=== PATIENT | female | born 1995 | race Caucasian/White ===

== ENCOUNTER 2025-03-18 11:20 | Outpatient (AMB) | payer OTHER, SELFPAY ==
--- NOTE | 2025-03-18 11:25 | A.OFFPC_ITS ---
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 Required: No Accompanied by: Self / Same As Patient Allergies No Known Allergies Allergy (Verified 03/18/25 11:25) Tobacco use date assessed: 03/18/25 Dental Screening Dental Screen Date: 03/18/25 Did you have a dental visit in the last 12 months?: Yes Did you have a dental problem in the last 6 months where you did not have access to dental care?: No Was dental information given to patient?: Patient has dentist HPI HPI Comments History of Present Illness Details 29 year old female with history of cocai ne use, alcohol use discorder, anxiety/depression presents to the office to establish care, management if chronic conditions and for annual physical exam. Prior patient at [facility] primary care, last seen over 1 year ago. 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 Completed high school. Not currenlty interested in more education. No alcohol use now, history heavy alcohol consumption. No history of cigarettes. Hx cocaine use, rehab in 09/2021. Sober since. Smokes MJ. Prior vaping. Follows a healthy overall. Very active at work, but no formal exercise. AUD/Cocaine abuse- sober since 09/2021 following rehab. . Anxiety/depression- sertraline 125mg has been out several months. Lorazepam 0.5mg prn maybe once weekly. History of ectopic and spontaneous - s/p right salpingectomy. No longer sexually active. Requestine OCP Concerns: Epigastric pain ongoing several weeks. Pain with pushing, no bulge. Uncomfortable constantly, much worse with eating. Pain with eating. Some heartburn. No nausea/vomiting/diarrhea. No melena. BM every other day some straining. Any food or drink is triggering. Health Maintenance: Overdue for truckload checker/pap FH breast cancer Paternal Grandmother age 30 Col[place]copies age 45 No eye doctor Dentist twice yearly Wears sun protection Reviewed past medical, surgical, social, family history ROS: General: No fevers, malaise, unintentional weight loss HEENT: No blurred vision, diplopia. No sore throat, nasal congestion, rhinorrhea, sinus pain, ear pain. No hearing loss Neck - no adenopathy Cardiovascular: No chest pain, palpitations, or leg edema Respiratory: No shortness of breath, wheezing, cough Breast: No pain, palpable lumps, nipple inversion GI: No dysphagia, odynophagia, globus sensation. see hpi : No dysuria, hematuria, increased urinary frequency, decreased urinary output. SKEIN WINDING OPERATOR: No abn vaginal bleeding or discharge MSK: No myalgia, back pain, arthralgias Neuro: No headaches, weakness, paresthesias Psych: no depression/anxiery. No AH/VH. No SI/HI Skin: No rashes or lesions EXAM: Constitutional - Awake and Alert, No apparent distress Eyes - PERRLA, EOMI. Anicteric Ears - external ears normal, canals clear, TMs intact and pearly westfall with good cone of light Nose- septum midline, nares clear, no sinus tenderness Mouth/throat- mucosa moist, tongue and uvula midline, no erythema/edema or tonsillar adenopathy. Neck-trachea midline, thyroid symmetric without palpable nodules, no adenopathy Cardiovascular - S1S2, RRR, No edema Respiratory - Normal lung expansion, Normal respiratory effort, No respiratory distress, CTA bilaterally Gastrointestinal - NT / ND; +BS; No rebound or guarding - No CVA tenderness Extremities - no calf tenderness bilaterally, no swelling Musculoskeletal - Normal inspection, normal ROM Skin - Warm/Dry, no concerning lesions Neurological - Alert & oriented x3, CN II-XII in tact, 5/5 strength BUE and BLE, 2+ patellar reflexes, sensation intact Psychological - Appropriate affect PFSH Medical History Gastritis H/O spontaneous , not currently Generalized anxiety disorder MDD (major depressive disorder) Surgical History H/O unilateral salpingectomy S/P ectopic Family History Paternal Grandmother Breast cancer, Onset Age: 30 Maternal Uncle Diabetes Social History Housing: House Patient Tobacco Use Status: Never used Tobacco e-Cigarette/Vaping Use: Currently Using Current occupational status: employed 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 1. Little interest or pleasure in doing things: more than half the days 2. Feeling down, depressed, or hopeless: nearly every day 3. Trouble falling or staying asleep, or sleeping too much: more than half the days 4. Feeling tired or having little energy: more than half the days 5. Poor appetite or overeating: more than half the days 6. Feeling bad about yourself - or that you are a failure or have let yourself or your family down: several days 7. Trouble concentrating on things, such as reading the newspaper or watching television: nearly every day 8. Moving or speaking so slowly that other people could have noticed. Or the opposite - being so fidgety or restless that you have been moving around a lot more than usual: more than half the days 9. Thoughts that you would be better off or of hurting yourself in some way: not at all Total score: 17 Depression Screening Interpretation: Positive Depression Screening Follow-up: New Medication prescribed and Follow-up Visit Requested Depression Screening Done: Yes 68222 - PHQ-9 Billing: Yes Source: Developed by Drs. Eugene Gaona, Camelia Bradshaw, Chuy Oviedo and colleagues, with an educational bettye from [employer] Thrive Questionnaire I am a: Patient What is your living situation today?: I have a steady place to live Within the past 12 months, did the food you bought not last and you didn't have the money to get more?: Never true Within the past 12 months, did you worry whether your food would run out before you got money to buy more?: Never true Do you have trouble paying for medicines?: No Do you have trouble getting transportation to medical appointments?: No Do you have trouble paying your heating and electricity bill?: No Do you have trouble taking care of your child, family member or friend?: No Do you have trouble with day-to-day activities such as bathing, preparing meals, shopping, managing finances, etc.?: No Are you currently unemployed and looking for a job?: No Are you interested in more education?: No Please select the resources that you would like help with: None Currently or been in a relationship where the following occur: No concerns reported THRIVE Score: 0 AUDIT C Alcohol Use Questionnaire (AUDIT-C) 1. How often do you have a drink containing alcohol?: Never 3. How often do you have six or more drinks on one occasion?: Never Total Score: 0 ARLYN-7 AMB Questionnaire ARLYN-7 Feeling nervous, anxious, or on edge: 3 = Nearly every day Not being able to stop or control worryin = More than half the days Worrying too much about different things: 2 = More than half the days Trouble relaxin = More than half the days Being so restless that it is hard to sit still: 1 = Several days Becoming easily annoyed or irritable: 3 = Nearly every day Feeling afraid as if something awful might happen: 3 = Nearly every day Total ARLYN-7 score (0-4 normal; 5-9 mild; 10-14 moderate; 15-21 severe): 16 Source: Developed by Drs. Eugene Gaona, Camelia Bradshaw, Chuy Oviedo and colleagues, with an educational bettye from [employer] ARLYN-7 Assessment Billing ARLYN-7 Assessment Tool: ARLYN-7 Assessment 73255 Physical exam (Primary Care) Vital Signs: Last Vital Signs Temp 96.9 F 03/18/25 11:26 Pulse 68 03/18/25 11:26 Resp 16 03/18/25 11:26 BP 112/70 03/18/25 11:26 Pulse Ox 99 03/18/25 11:26 Oxygen Delivery Method Room Air 03/18/25 11:26 BMI result Body Mass Index 19.1 Tobacco/Smoking Status: Tobacco use Status Tobacco use date assessed 03/18/25 03/18/25 11:31 Patient Tobacco Use Status Never used Tobacco 03/18/25 11:31 e-Cigarette/Vaping Use Currently Using 03/18/25 11:31 Depression Screening Interpretation: Positive Depression Screening Follow-up: New Medication prescribed and Follow-up Visit Requested Currently or been in a relationship where the following occur: No concerns reported Coding Level of Care Code Est Pt Prev Care 18-39y(61729) Diagnoses Routine medical exam Z00.00 Encounter for initial prescription of contraceptive pills Z30.011 FH: breast cancer in relative when <45 years old Z80.3 Gastritis K29.70 MDD (major depressive disorder) F32.9 Additional Codes ARLYN-7 Assessment Billing - ARLYN-7 Assessment Tool: ARLYN-7 Assessment 12651 ([id number]) PHQ-9 - 22027 - PHQ-9 Billing: Yes ([id number]) Assessment & Plan Assessment & Plan (1) Routine medical exam: Code(s): Z00.00 - Encounter for general adult medical examination without abnormal findings Category: Medical Plan: 29 year old female presenting for annual physical exam and to establish care. Plan as below (2) Encounter for initial prescription of contraceptive pills: Code(s): Z30.011 - Encounter for initial prescription of contraceptive pills Plan: Norethindrone. Referred to truckload checker. Counseled on safe sex practices. Declines STI testing (3) FH: breast cancer in relative when <45 years old: Code(s): Z80.3 - Family history of malignant neoplasm of breast Category: Medical Plan: History of breast cancer in her grandmother at age 30. Referred for MRI of the breast (4) Gastritis: Code(s): K29.70 - Gastritis, unspecified, without bleeding Category: Medical Plan: We will check stool for H pylori. Counseled on triggering food/beverages and given written information on this. Can use sucralfate 1g QIDHS and tums. Once specimen is returned, can trial famotidine 20mg BID. (5) MDD (major depressive disorder): Code(s): F32.9 - Major depressive disorder, single episode, unspecified Category: Medical Plan: PHQ 9 score 17, ARLYN 7 score 16. No si/hi. Initiate sertraline 50mg daily, Counseled on dosing and side effects. Will slowly titrate as needed/tolerated. Advised to seek out a counselor and givn information on this. Follow up in 1 months Plan Routine screening labs as ordered below Referred to SKEIN WINDING OPERATOR. Referred for breast MRI given FH age 30 Continue following for annual skin exams and use sun protection Annual eye exams Wear seat belt in car Recommend regular exercise and healthy diet Follow up in 1 month for f/up on drpression/anxiety Orders: Orders Liver Panel 03/18/25 Z00.00 - Encounter for general adult medical examination without abnormal findings, Z87.59 - Personal history of other complications of , childbirth and the puerperium, Z90.79 - Acquired absence of other genital organ(s) H pylori Ag Stool 03/18/25 K29.70 - Gastritis, unspecified, without bleeding Basic Metabolic Panel 03/18/25 Z00.00 - Encounter for general adult medical examination without abnormal findings, Z87.59 - Personal history of other complications of , childbirth and the puerperium, Z90.79 - Acquired absence of other genital organ(s) Complete Blood Count Auto Diff 03/18/25 Z00.00 - Encounter for general adult medical examination without abnormal findings, Z87.59 - Personal history of other complications of , childbirth and the puerperium, Z90.79 - Acquired absence of other genital organ(s) Lipid Panel 03/18/25 Z00.00 - Encounter for general adult medical examination without abnormal findings, Z87.59 - Personal history of other complications of , childbirth and the puerperium, Z90.79 - Acquired absence of other genital organ(s) TSH reflex Free T4 03/18/25 Z00.00 - Encounter for general adult medical examination without abnormal findings, Z87.59 - Personal history of other complications of , childbirth and the puerperium, Z90.79 - Acquired absence of other genital organ(s) Vitamin D 25-OH Total 03/18/25 Z00.00 - Encounter for general adult medical examination without abnormal findings, Z87.59 - Personal history of other complications of , childbirth and the puerperium, Z90.79 - Acquired absence of other genital organ(s) MR breast BI wo/w con 03/18/25 Z80.3 - Family history of malignant neoplasm of breast Referrals ANIMAL LABORATORY HELPER Referral F32.9 - Major depressive disorder, single episode, unspecified, F41.1 - Generalized anxiety disorder, Z12.4 - Encounter for screening for malignant neoplasm of cervix, Z30.011 - Encounter for initial prescription of contraceptive pills Medications: New norethindrone (contraceptive) (Gladis) 0.35 mg PO DAILY 84 tabs 1RF sucralfate 1 g PO QIDACHS 60 tabs 0RF Patient Instructions: [email or web address]
[2025-03-18 11:26] VITALS: BP 112/70; PULSE 68; RESP 16; TEMP 36.1; O2SAT 99; BMI 19.1
== END 2025-03-18 12:01 | disposition home or self-care (01) ==
PROVIDERS: PCP Physician Assistant; Visit Provider Physician Assistant
DX: Z00.00 Encounter for general adult medical examination without abnormal findings (principal); Z30.011 Encounter for initial prescription of contraceptive pills; Z80.3 Family history of malignant neoplasm of breast; K29.70 Gastritis, unspecified, without bleeding; F32.9 Major depressive disorder, single episode, unspecified

== ENCOUNTER → 2025-03-18 11:20 | Outpatient (BNVA) | payer OTHER, SELFPAY | PROVIDERS: Visit Provider Physician Assistant | DX: Z00.00 Encounter for general adult medical examination without abnormal findings (principal); F32.A Depression, unspecified; Z30.011 Encounter for initial prescription of contraceptive pills; F41.1 Generalized anxiety disorder; K29.70 Gastritis, unspecified, without bleeding; F14.91 Cocaine use, unspecified, in remission; Z80.3 Family history of malignant neoplasm of breast | CPT/HCPCS: 96127; 99395 ==

== ENCOUNTER 2025-03-18 12:10 | Outpatient (REF) | payer OTHER, SELFPAY ==
[2025-03-18 13:06] LABS: MANUAL DIFF FLAG NO
[2025-03-18 13:30] LABS: Hematocrit 39.3 % (37.0-47.0); Hemoglobin 13.0 g/dl (12.0-16.0); Imm Gran Abs Auto 0.02 X10*3/uL (0.00-0.03); Imm Gran Pct Auto 0.6 % (0.0-0.4); Lymphocytes Absolute Auto 1.2 X10*3/uL (1.2-4.9); Mean Corpuscular HGB Conc 33.1 g/dl (31.0-35.0); Mean Corpuscular Hemoglobin 30.0 pg (27.0-33.0); Mean Corpuscular Volume 90.6 fL (80.0-98.0); NRBC Abs Auto 0.000 X10*3/uL (0.0-0.012); NRBC Pct Auto 0.0 /100WBC (0.0-0.2); Platelet Count 217 X10*3/uL (160-400); Red Blood Count 4.34 X10*6/uL (4.20-5.50); White Blood Count 3.3 X10*3/uL (4.8-10.8)
[2025-03-18 14:31] LABS: Alanine Aminotransferase 26 U/L (0-31); Albumin Level 4.5 g/dL (3.5-5.0); Alkaline Phosphatase 34 U/L (39-117); Anion Gap 9 (12-20); Aspartate Amino Transferase 24 U/L (5-31); Blood Urea Nitrogen 8 mg/dL (9-16); Calcium 8.8 mg/dL (8.4-10.2); Carbon Dioxide 27 mmol/L (22-29); Chloride 110 mmol/L (96-108); Cholesterol 150 mg/dL (<200); Estimated Glomerular Filt Rate > 60; HDL Cholesterol 57 mg/dL (>40); Potassium 4.3 mmol/L (3.3-5.1); Sodium 142 mmol/L (135-145); Total Protein 6.7 g/dL (6.5-8.0); Triglycerides 36 mg/dL (<150)
== END 2025-03-18 12:11 | disposition home or self-care (01) ==
LOC: HO.10HDL 12:10
PROVIDERS: Visit Provider Physician Assistant
DX: Z00.00 Encounter for general adult medical examination without abnormal findings (principal); Z87.59 Personal history of other complications of pregnancy, childbirth and the puerperium; Z90.79 Acquired absence of other genital organ(s)
CPT/HCPCS: 36415; 80048; 80061; 80076; 82306; 84443; 85025

== ENCOUNTER 2025-03-21 11:38 | Outpatient (REF) | payer OTHER, SELFPAY ==
--- OUTSIDE RECORDS SUMMARY | 2025-03-21 19:42 | XMS_ITS | Clinical Summary ---
Author Organization [facility] Prior to 09/11/[address] [place] [id number] Care Team Providers Care National Facilities Manager Name Role Phone Unavailable Primary Care Provider Unavailabl e Social History Tobacco Use Types Packs/Day Years Used Date Smoking Tobacco: Never Assessed Sex and Gender Information Value Date Recorded Sex Assigned at Not on file Gender Identity Not on file Sexual Orientation Not on file Plan of Treatment Not on file
== END 2025-03-21 11:39 | disposition home or self-care (01) ==
LOC: HO.10HDLNP 11:38
PROVIDERS: Visit Provider Physician Assistant
DX: K29.70 Gastritis, unspecified, without bleeding (principal)
CPT/HCPCS: 87338